=== PATIENT | female | born 1990 | race Hispanic/Latino ===

== ENCOUNTER 2020-05-04 19:53 | Emergency (ER) | payer OTHER ==
[~2020-05-04] VITALS: Ht 162.6 cm; Wt 77.3 kg
--- NOTE | 2020-05-04 21:01 | REPVR ---
PROCEDURE INFORMATION: Exam: XR Left Knee Exam date and time: 05/04/2020 8:08 PM Age: 29 years old Clinical indication: Pain; Knee; Left; Additional info: Knee pain, feels tore something TECHNIQUE: Imaging protocol: XR Left knee. Views: 4 or more views. COMPARISON: No relevant prior studies available. FINDINGS: Bones/joints: Normal. Soft tissues: Normal. IMPRESSION: No acute findings. Electronically signed by: Ruddy Wisdom On 05/04/2020 21:01:37 PM
[2020-05-04] MEDS ORDERED: IBUP-1022 PO (21:08)
[2020-05-04 21:37] VITALS: BP 99/59
== END 2020-05-04 21:48 | disposition home or self-care (01) ==
LOC: M ED 19:53
DX: S86.912A Strain of unspecified muscle(s) and tendon(s) at lower leg level, left leg, initial encounter (principal); S80.02XA Contusion of left knee, initial encounter; X50.1XXA Overexertion from prolonged static or awkward postures, initial encounter; Y92.9 Unspecified place or not applicable; Y93.9 Activity, unspecified; Y99.9 Unspecified external cause status